=== PATIENT | female | born 1955 | race African-American/Black ===

== ENCOUNTER 2016-12-19 16:24 | Emergency (ER) | payer BC ==
[2016-12-19 16:35] VITALS: BP 138/66; PULSE 78; TEMP 98.4; BMI 28.5
[2016-12-19] MEDS ORDERED: ACETAMINOPHEN 325 MG TABLET (FP) ONE (16:48)
--- NOTE | 2016-12-19 16:54 | PDOC ---
[id number] FALL,INJURY TO LIP AND FACE Time Seen by Provider: 12/19/16 16:45 - History of Present Illness Initial Comments: 01/04/17 10:03 Chief complaint: Facial injury History of present illness: Patient tripped over the sidewalk curb, fell and struck the front of her face, injuring her upper lip. No loss of consciousness. No injury or pain to the head or neck. No other injuries to the chest abdomen pelvis hips spine or other extremities Social/family history reviewed and noncontributory Physical exam: Alert and oriented well-developed well-nourished no acute distress cheerful and cooperative Afebrile, vital signs normal Head atraumatic. PERRLA, fundi benign with sharp disc margins and good central venous pulsations. ENT clear. There is moderate swelling of the upper lip, without any abrasions or lacerations noted. There is no injury to the gingiva or the teeth. No internal injuries noted of the oropharynx. There is no instability of the facial structure. There is no palpable swelling or deformity of the maxilla or mandible Neck is without point tenderness or deformity, full range of motion without pain Chest clear, full breath sounds throughout bilaterally, no rib cage or chest wall tenderness or deformity CV regular without murmur rub or gallop Abdomen soft nontender without mass or organomegaly. No CVAT Neurological C2 to 12 intact. Strength full and symmetric. No focal sensory or motor deficits. Gait stable and unimpaired Extremities without trauma visible or palpable Impression: Minor contusion of the face, involving mostly the upper lip. No sign of significant facial injury, facial fracture, or head injury Plan: Ice, Tylenol, rest, and follow-up if further symptoms develop. Patient discharged in the company of her daughter fully ambulatory and in no distress. Past History - Past Medical History Allergies/Adverse Reactions: Allergies Allergy/AdvReac Type Severity Reaction Status Date / Time cephalexin monohydrate AdvReac Itching Verified 12/19/16 16:26 [From Keflex] Home Medications: Ambulatory Orders NK [No Known Home Medication] 12/19/16 Other medical history: glucoma - Psycho/Social/Smoking Cessation Hx Anxiety: No Suicidal Ideation: No Smoking History: Never smoked Information on smoking cessation initiated: No Substance Use Type: None *Physical Exam - Vital Signs Last Vital Signs Temp Pulse Resp BP Pulse Ox 98.4 F 78 18 138/66 100 12/19/16 16:25 12/19/16 16:25 12/19/16 16:25 12/19/16 16:25 12/19/16 16:25 *DC/Admit/Observation/Transfer Diagnosis at time of Disposition: Contusion of face Qualifiers: Encounter type: initial encounter Qualified Code(s): S00.83XA - Contusion of other part of head, initial encounter - Discharge Dispostion Disposition: HOME Condition at time of disposition: Fair Admit: No - Patient Instructions Printed Discharge Instructions: DI for Contusion, DI for Abrasion - Post Discharge Activity Work/School Note: Back to Work
[2016-12-19] MEDS: DIPHTH,PERTUSS(ACELL),TET 0.5 ML DISP.SYRIN IM ONE (16:56)
[2016-12-19] MEDS: ACETAMINOPHEN 325 MG TABLET (FP) PO ONE (16:57)
== END 2016-12-19 17:55 | disposition home or self-care (01) ==
LOC: FER 16:24
PROC: 3E0234Z Introduction of Serum, Toxoid and Vaccine into Muscle, Percutaneous Approach (ICD-10-PCS; principal; 2016-12-19)
DX: S00.83XA Contusion of other part of head, initial encounter (principal); W18.39XA Other fall on same level, initial encounter; Y93.9 Activity, unspecified; Y92.9 Unspecified place or not applicable
CPT/HCPCS: 90715; 99281-25